=== PATIENT | male | born 1970 | race Caucasian/White ===

== ENCOUNTER 2021-09-21 14:06 | Inpatient (IN) | payer MEDICARE, MEDICAID ==
[2021-09-21 16:35] LABS: #Eosinphils 0.2 thou/uL (0.0-0.7); #Lymphocytes 2.3 thou/uL (1.20-3.40); #Monocytes 1.1 thou/uL (0.11-0.59); #Neutrophils 7.6 thou/uL (1.40-6.50); %Basophils 0.2 % (0.0-1.0); %Eosinophils 1.9 % (0.0-10.0); %Lymphocytes 20.4 % (21.0-51.0); %Monocytes 9.6 % (0.0-10.0); %Neutrophils 67.9 % (42.0-75.0); Hemoglobin 14.7 g/dL (14.0-18.0); Mean Corpuscular HGB CONC 33.2 g/dL (32.0-36.0); Mean Corpuscular Hemoglobin 33.8 pg (27.0-31.0); Mean Platelet Volume 7.7 fL (7.4-10.4); Platelet Count 245 thou/uL (130-400); RBC Distribution Width 11.9 % (11.5-14.5); Red Blood Cell (RBC) Count 4.36 mill/uL (4.70-6.10); White Blood Cell (WBC) Count 11.2 thou/uL (4.8-10.8)
[2021-09-21 16:57] LABS: ALT (SGPT) 13 U/L (8-55); AST (SGOT) 12 U/L (5-34); Albumin 3.7 g/dL (3.5-5.0); Alkaline Phosphatase 96 U/L (40-110); Anion Gap 15 mmol/L (10-20); BUN (Urea Nitrogen) 11 mg/dL (8.4-25.7); Bilirubin, Total 0.5 mg/dL (0.2-1.2); Calc. Creatinine Clearance 0 mL/min (70-130); Calcium 9.3 mg/dL (7.8-10.44); Carbon Dioxide 22 mmol/L (22-29); Chloride 107 mmol/L (98-107); Globulin 2.9 g/dL (2.4-3.5); Glucose 91 mg/dL (70-105); Potassium 4.1 mmol/L (3.5-5.1); Protein, Total 6.6 g/dL (6.0-8.3); Sodium 140 mmol/L (136-145)
[2021-09-21] MEDS ORDERED: Vancomycin 1 GM/200 ML BAG ONE (18:27)
[2021-09-21] MEDS ORDERED: Piperacillin/Tazobactam 4.5 GM VIAL ONE (18:29)
[2021-09-21] MEDS ORDERED: Lorazepam 2 MG/ML VIAL ONE (18:43)
[2021-09-21] MEDS ORDERED: Ondansetron PF 4 MG/2 ML Vial ONE (18:43)
[2021-09-21] MEDS ORDERED: Morphine 4 MG/ML VIAL ONE (18:43)
[2021-09-21] MEDS ORDERED: Ondansetron ODT 4 MG TAB SL PRN (19:30)
[2021-09-21] MEDS ORDERED: Ondansetron PF 4 MG/2 ML Vial IVP PRN (19:30)
[2021-09-21] MEDS ORDERED: Acetaminophen 325 MG TAB PO PRN (19:30)
[2021-09-21] MEDS ORDERED: Lorazepam 1 MG TAB PO PRN (19:40)
[2021-09-21] MEDS ORDERED: Lorazepam 2 MG/ML VIAL IM PRN (19:40)
[2021-09-21] MEDS ORDERED: Electrolyte Replacement Protocol 1 EACH FS SCH (19:45)
[2021-09-21 20:03] LABS: Lactic Acid 1.5 mmol/L (0.5-2.2)
[2021-09-21] MEDS: Heparin 5,000 UNITS/ML VIAL SC SCH (21:11)
[2021-09-21] MEDS: Lactated Ringer's 1,000 ML IV SCH (21:11)
[2021-09-21 21:35] LABS: Magnesium 1.7 mg/dL (1.6-2.6); Phosphorus 3.4 mg/dL (2.3-4.7)
[2021-09-21] MEDS ORDERED: Magnesium 2 GM/50 ML(in water) 2 GM in Premix Bag 1 BAG IVPB SCH (22:30)
[2021-09-21 22:52] VITALS: BMI 27.9
[2021-09-21] MEDS: Thiamine HCl 200 MG/2 ML VIAL SLOW IVP SCH (22:55)
[2021-09-21] MEDS: Nicotine 14 MG PATCH TD SCH (22:56)
[2021-09-21 23:53] LABS: HIV (1/2) Antibody/Antigen Non-Reactive (NonReactive); HIV 1/2 INDEX 0.09 S/CO (<1.00)
[2021-09-21] MEDS: Lorazepam 1 MG TAB PO SCH (23:55)
[2021-09-22] MEDS ORDERED: Vancomycin 1 GM in Premix Bag 1 BAG IVPB SCH (00:15)
[2021-09-22] MEDS ORDERED: Cefepime 2 GM in Sodium Chloride 0.9% 100 ML IVPB SCH (02:00)
[2021-09-22] MEDS ORDERED: VANCOMYCIN 2 GRAM/400 ML BAG IVPB SCH (02:00)
[2021-09-22] MEDS: Lactated Ringer's 1,000 ML IV SCH ×3 (04:30→20:09)
[2021-09-22] MEDS: Lorazepam 1 MG TAB PO SCH ×2 (06:22→11:09)
[2021-09-22] MEDS: Folic Acid 1 MG TAB PO SCH (09:29)
[2021-09-22] MEDS: Heparin 5,000 UNITS/ML VIAL SC SCH (09:29)
[2021-09-22] MEDS: Multivit, Therapeutic 1 TAB PO SCH (09:29)
[2021-09-22 11:04] LABS: Syphilis Antibody Nonreactive (Nonreactive); Syphilis Antibody Index 0.08 S/CO (<1.00 Non-Reactive)
[2021-09-22 11:05] LABS: Amphetamine Detected (NotDetected); Barbiturates Screen Not Detected (NotDetected); Benzodiazepine Screen Detected (NotDetected); Cocaine Metabolite Screen Not Detected (NotDetected); Methadone Not Detected (NotDetected); Methamphetamine Detected (NotDetected); Opiate Screen Detected (NotDetected); Oxycodone Screen Not Detected (NotDetected); Phencyclidine (PCP) Not Detected (NotDetected); THC/Cannabinoid Screen Not Detected (NotDetected); Tricyclic Screen Not Detected (NotDetected)
[2021-09-22] MEDS: Ketorolac Tromethamine 30 MG/ML VIAL IVP PRN ×2 (11:08→20:11)
[2021-09-22] MEDS: VANCOMYCIN 2 GRAM/500 ML BAG 2 GM in Premix Bag 1 BAG IVPB SCH ×2 (12:15→23:34)
[2021-09-22] MEDS: chlordiazePOXIDE HCl 25 MG CAP PO SCH ×3 (13:12→23:34)
[2021-09-22 13:23] LABS: #Basophils 0.1 thou/uL (0.0-0.2); #Eosinphils 0.3 thou/uL (0.0-0.7); #Lymphocytes 2.2 thou/uL (1.20-3.40); #Monocytes 0.7 thou/uL (0.11-0.59); #Neutrophils 5.7 thou/uL (1.40-6.50); %Basophils 0.8 % (0.0-1.0); %Eosinophils 3.1 % (0.0-10.0); %Lymphocytes 24.4 % (21.0-51.0); %Monocytes 8.1 % (0.0-10.0); %Neutrophils 63.7 % (42.0-75.0); Hemoglobin 14.3 g/dL (14.0-18.0); Mean Corpuscular HGB CONC 33.5 g/dL (32.0-36.0); Mean Corpuscular Hemoglobin 34.1 pg (27.0-31.0); Mean Platelet Volume 8.1 fL (7.4-10.4); Platelet Count 198 thou/uL (130-400); RBC Distribution Width 11.9 % (11.5-14.5); Red Blood Cell (RBC) Count 4.18 mill/uL (4.70-6.10); White Blood Cell (WBC) Count 8.9 thou/uL (4.8-10.8)
[2021-09-22 13:42] LABS: ALT (SGPT) 12 U/L (8-55); AST (SGOT) 9 U/L (5-34); Albumin 3.1 g/dL (3.5-5.0); Alkaline Phosphatase 79 U/L (40-110); Anion Gap 10 mmol/L (10-20); BUN (Urea Nitrogen) 10 mg/dL (8.4-25.7); Bilirubin, Total 0.5 mg/dL (0.2-1.2); Calc. Creatinine Clearance 159 mL/min (70-130); Calcium 8.6 mg/dL (7.8-10.44); Carbon Dioxide 24 mmol/L (22-29); Chloride 105 mmol/L (98-107); Globulin 2.6 g/dL (2.4-3.5); Glucose 96 mg/dL (70-105); Potassium 4.1 mmol/L (3.5-5.1); Protein, Total 5.7 g/dL (6.0-8.3); Sodium 135 mmol/L (136-145)
[2021-09-22 14:30] LABS: Hep A IgM AB Non-Reactive (NonReactive); Hep A IgM S/CO 0.24 S/CO (0-0.79); Hep C IgG Ab Non-Reactive (NonReactive); Hep C Index 0.09 S/CO (0-0.79); Hepatitis B Core IgM Abs Non-Reactive (NonReactive)
[2021-09-22 17:01] LABS: HBSAg Index 5889.27 S/CO (0-0.99)
[2021-09-22 17:02] LABS: Hep B Surf Ag Reflx Confirmation S/CO (NonReactive)
[2021-09-22] MEDS ORDERED: Lorazepam 1 MG TAB PO PRN (19:40)
[2021-09-22] MEDS: Thiamine HCl 200 MG/2 ML VIAL SLOW IVP SCH (20:13)
[2021-09-22] MEDS: Nicotine 14 MG PATCH TD SCH (20:15)
[2021-09-23] MEDS: chlordiazePOXIDE HCl 25 MG CAP PO SCH ×3 (05:27→20:15)
[2021-09-23] MEDS: Lactated Ringer's 1,000 ML IV SCH (05:28)
[2021-09-23] MEDS: Ketorolac Tromethamine 30 MG/ML VIAL IVP PRN (05:30)
[2021-09-23] MEDS: Folic Acid 1 MG TAB PO SCH (08:28)
[2021-09-23] MEDS: Multivit, Therapeutic 1 TAB PO SCH (08:28)
[2021-09-23] MEDS: Enoxaparin Sodium 40 MG/0.4 ML SYRINGE SC SCH (08:28)
[2021-09-23] MEDS ORDERED: Amlodipine 5 MG TAB PO SCH (10:15)
[2021-09-23 11:41] LABS: Vancomycin, Trough 16.3 ug/mL
[2021-09-23 11:47] LABS: ALT (SGPT) 10 U/L (8-55); AST (SGOT) 12 U/L (5-34); Alkaline Phosphatase 83 U/L (40-110); Anion Gap 13 mmol/L (10-20); BUN (Urea Nitrogen) 9 mg/dL (8.4-25.7); Bilirubin, Total 0.4 mg/dL (0.2-1.2); Calc. Creatinine Clearance 172 mL/min (70-130); Calcium 8.7 mg/dL (7.8-10.44); Carbon Dioxide 21 mmol/L (22-29); Chloride 106 mmol/L (98-107); Globulin 2.8 g/dL (2.4-3.5); Glucose 111 mg/dL (70-105); Potassium 4.1 mmol/L (3.5-5.1); Protein, Total 5.8 g/dL (6.0-8.3); Sodium 136 mmol/L (136-145)
[2021-09-23 11:48] LABS: #Eosinphils 0.4 thou/uL (0.0-0.7); #Lymphocytes 1.9 thou/uL (1.20-3.40); #Monocytes 0.8 thou/uL (0.11-0.59); #Neutrophils 5.3 thou/uL (1.40-6.50); %Basophils 0.2 % (0.0-1.0); %Eosinophils 4.5 % (0.0-10.0); %Lymphocytes 22.8 % (21.0-51.0); %Monocytes 9.4 % (0.0-10.0); Hemoglobin 14.4 g/dL (14.0-18.0); Mean Corpuscular HGB CONC 33.2 g/dL (32.0-36.0); Mean Corpuscular Hemoglobin 33.8 pg (27.0-31.0); Mean Platelet Volume 7.6 fL (7.4-10.4); Platelet Count 244 thou/uL (130-400); RBC Distribution Width 11.8 % (11.5-14.5); Red Blood Cell (RBC) Count 4.27 mill/uL (4.70-6.10); White Blood Cell (WBC) Count 8.3 thou/uL (4.8-10.8)
[2021-09-23] MEDS: traMADol HCl 50 MG TAB PO PRN ×2 (13:46→20:10)
[2021-09-23] MEDS: VANCOMYCIN 2 GRAM/500 ML BAG 2 GM in Premix Bag 1 BAG IVPB SCH ×2 (13:47→23:05)
[2021-09-23] MEDS ORDERED: Lorazepam 1 MG TAB PO PRN (19:40)
[2021-09-23] MEDS: Nicotine 14 MG PATCH TD SCH (20:09)
[2021-09-23] MEDS: Thiamine HCl 200 MG/2 ML VIAL SLOW IVP SCH (20:10)
[2021-09-24] MEDS: chlordiazePOXIDE HCl 25 MG CAP PO SCH ×2 (05:42→13:12)
[2021-09-24] MEDS ORDERED: Lorazepam 0.5 MG TAB PO SCH (06:00)
[2021-09-24] MEDS: traMADol HCl 50 MG TAB PO PRN (07:52)
[2021-09-24] MEDS: Enoxaparin Sodium 40 MG/0.4 ML SYRINGE SC SCH (07:52)
[2021-09-24] MEDS: Folic Acid 1 MG TAB PO SCH (07:53)
[2021-09-24] MEDS: Multivit, Therapeutic 1 TAB PO SCH (07:53)
[2021-09-24] MEDS ORDERED: Amlodipine 5 MG TAB PO SCH (09:00)
[2021-09-24 12:32] VITALS: BP 154/92; TEMP 97.7
[2021-09-24] MEDS ORDERED: Lorazepam 0.5 MG TAB PO PRN (19:40)
[2021-09-24] MEDS ORDERED: Thiamine 100 MG TAB PO SCH (20:00)
[2021-09-24] MEDS ORDERED: Sulfameth/Trimethoprim DS 800-160mg TAB PO SCH (21:00)
[2021-09-25] MEDS ORDERED: chlordiazePOXIDE HCl 25 MG CAP PO SCH (09:00)
[2021-09-25] MEDS ORDERED: Amlodipine 5 MG TAB PO SCH (09:00)
[2021-09-26] MEDS ORDERED: chlordiazePOXIDE HCl 25 MG CAP PO SCH (12:00)
== END 2021-09-24 13:39 | disposition home or self-care (01) | DRG 872 ==
LOC: ERS 14:06 → T4-B 19:10
PROVIDERS: ADMIT Student in an Organized Health Care Education/Training Program; ATTEND Student in an Organized Health Care Education/Training Program
DX: A41.9 Sepsis, unspecified organism (principal); L03.116 Cellulitis of left lower limb; Z20.822 Contact with and (suspected) exposure to COVID-19; I10 Essential (primary) hypertension; F41.9 Anxiety disorder, unspecified; F31.9 Bipolar disorder, unspecified; F20.9 Schizophrenia, unspecified; F10.10 Alcohol abuse, uncomplicated; F19.10 Other psychoactive substance abuse, uncomplicated; F17.210 Nicotine dependence, cigarettes, uncomplicated; Z79.899 Other long term (current) drug therapy
CPT/HCPCS: 36415; 80053; 80074; 80202; 80306; 83605; 83735; 84100; 84145; 85025; 85652; 86140; 86780; 87040; 87340; 87389; 96365; 96375; J0692; J1644; J1650; J1885; J2060; J2270; J2405; J2543; J3370; J3411; J3475; J3490; J7120; U0003; U0005